=== PATIENT | female | born 1980 | race African-American/Black ===

== ENCOUNTER 2017-08-18 19:43 | Emergency (ER) | payer BC ==
[~2017-08-18] VITALS: Ht 154.9 cm; Wt 93.9 kg
[2017-08-18 20:00] VITALS: BP 139/94
[2017-08-18] MEDS ORDERED: KEFLEX500 MG ORAL (20:05)
[2017-08-18 20:08] VITALS: BP 139/94
--- NOTE | 2017-08-18 20:23 | Emergency Room Report ---
History of Present Illness General Chief Complaint: Animal Bite Source: Patient Present Illness HPI [id number] with "bites" to both legs Noted 3 days ago after taking clothes to [facility] Denies fever/chills or history of DM Allergies: Coded Allergies: No Known Allergies (Unverified , 08/18/17) Patient History Past Medical History: none Past Surgical History: none Pertinent Family History: none Last Menstrual Period: aug 09 Now: No : 4 Para: 2 Immunizations: UTD Reviewed Nursing Documentation: PMH: Agreed, PSxH: Agreed Nursing Documentation-PMH Hx Hypertension: Yes Review of Systems All Other Systems: negative except mentioned in HPI Physical Exam Vital Signs Date Time Temp Pulse Resp B/P (MAP) Pulse Ox O2 Delivery O2 Flow Rate FiO2 08/18/17 19:53 97.6 69 18 139/94 99 Room Air 97.5 Sp02 EP Interpretation: reviewed, normal General Appearance: normal inspection, well appearing, no apparent distress, alert, GCS 15, non-toxic Head: normocephalic, atraumatic Eyes: bilateral eye PERRL, bilateral eye EOMI ENT: normal ENT inspection, hearing grossly normal, normal pharynx, no angioedema, normal voice, TMs + canals normal, uvula midline, moist mucus membranes Neck: normal inspection, full range of motion, supple, thyroid normal, no meningismus, no bony tend Respiratory: normal inspection, lungs clear, normal breath sounds, no rhonchi, no respiratory distress, no retraction, no accessory muscle use, no wheezing, speaking full sentences Cardiovascular #1: regular rate, rhythm, no edema, no JVD, normal capillary refill Gastrointestinal: normal inspection, normal bowel sounds, non tender, soft, no mass, no peritonitis, non-distended, no guarding, no hernia, no pulsatile mass Genitourinary: no CVA tenderness Musculoskeletal: normal inspection, back normal, normal range of motion, no calf tenderness, pelvis stable, Juani's Sign negative Neurologic: normal inspection, alert, oriented x3, responsive, 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 No asbcess Lymphatic: normal inspection, no adenopathy Medical Decision Making Diagnostic Impression: Primary Impression: Cellulitis Qualified Codes: L03.119 - Cellulitis of unspecified part of limb ER Course Bilateral lower extremity cellulitis VSS, afebrile Not septic appearing Rx Keflex ER course: Patient has remained stable during ED stay. Disposition: Patient is to be discharged to home. Prescriptions given are keflex Patient is instructed to follow up with their primary care doctor within 5 days. Strict return precautions discussed with patient such as fever, chills, worsening/severe pain, nausea, vomiting, which may indicate severe illness. Patient verbalizes understanding and agrees with plan. Please note that this Emergency Department Report was dictated using [employer] pattern repairer technology software, occasionally this can lead to erroneous entry secondary to interpretation by the dictation equipment Last Vital Signs Date Time Temp Pulse Resp B/P (MAP) Pulse Ox O2 Delivery O2 Flow Rate FiO2 08/18/17 20:08 97.5 69 18 139/94 99 Room Air 97.5 Status: improved Disposition: HOME, SELF-CARE Condition: Improved Scripts Cephalexin* (KEFLEX*) 500 Mg Capsule 500 MG ORAL Q6H for 7 Days, #28 CAP 0 Refills Prov: GAMAL VALDEZ M.D. 08/18/17 Patient Instructions: Cellulitis, Maij-da-Exck GAMAL VALDEZ M.D. Aug 18, 2017 20:23
== END 2017-08-18 20:20 | disposition home or self-care (01) ==
LOC: EMR 20:20
DX: L03.116 Cellulitis of left lower limb (principal); L03.115 Cellulitis of right lower limb; I10 Essential (primary) hypertension
CPT/HCPCS: 99283

== ENCOUNTER 2017-12-06 13:09 | Emergency (ER) | payer BC ==
[~2017-12-06] VITALS: Ht 154.9 cm; Wt 98.4 kg
[~2017-12-06 13:09] MED LIST: KEFLEX500 MG ORAL
[2017-12-06] MEDS ORDERED: METHYLDOPA500 MG ORAL (13:22)
[2017-12-06 14:10] LABS: APPEARANCE,URINE CLEAR; BILIRUBIN, URINE NEGATIVE (NEGATIVE); GLUCOSE, URINE (UA) NEGATIVE (NEGATIVE); KETONES,URINE 1+ (NEGATIVE); LEUKOCYTE ESTERASE ,URINE NEGATIVE (NEGATIVE); NITRITE,URINE NEGATIVE (NEGATIVE); PH,URINE 7 (4.5-8.0); PROTEIN,URINE NEGATIVE (NEGATIVE); UROBILINOGEN,URINE NORMAL MG/DL (0.0-1.0)
[2017-12-06 14:18] LABS: COLOR,URINE YELLOW
[2017-12-06 14:30] LABS: BASOPHILS % (AUTO) 1.2 % (0.0-2.0); EOSINOPHILS % (AUTO) 1.2 % (0.0-3.0); HEMATOCRIT 37.8 % (37.0-47.0); HEMOGLOBIN 12.1 G/DL (12.0-16.0); LYMPHOCYTES % (AUTO) 26.8 % (20.0-45.0); MEAN CORPUSCULAR VOLUME 86 FL (80-99); MONOCYTES % (AUTO) 9.3 % (1.0-10.0); NEUTROPHILS % (AUTO) 61.6 % (45.0-75.0); PLATELET COUNT 315 K/UL (150-450); RED BLOOD COUNT 4.38 M/UL (4.20-5.40); RED CELL DISTRIBUTION WIDTH 11.4 % (11.6-14.8); WHITE BLOOD COUNT 7.6 K/UL (4.8-10.8)
[2017-12-06 14:45] LABS: ANION GAP 7 mmol/L (5-15); BLOOD UREA NITROGEN 6 mg/dL (7-18); CALCIUM 8.8 MG/DL (8.5-10.1); CARBON DIOXIDE 26 MMOL/L (21-32); CHLORIDE 103 MMOL/L (98-107); CREATININE 0.8 MG/DL (0.55-1.30); SODIUM 136 MMOL/L (136-145)
[2017-12-06 14:50] LABS: ALANINE AMINOTRANSFERASE 17 U/L (12-78); ALBUMIN 3.1 G/DL (3.4-5.0); ALBUMIN/GLOBULIN RATIO 0.8 (1.0-2.7); ALKALINE PHOSPHATASE 72 U/L (46-116); ASPARTATE AMINO TRANSFERASE 15 U/L (15-37); BILIRUBIN,TOTAL 0.9 MG/DL (0.2-1.0)
--- NOTE | 2017-12-06 15:51 | Emergency Room Report ---
History of Present Illness General Chief Complaint: Complications Source: Patient, Medical Record Present Illness HPI Patient states that she has had some light vaginal spotting since this morning. She is 9 weeks by dates. She did have sexual intercourse last night. She denies fever or chills. She denies pelvic pain. She denies dysuria or hematuria. She has no other complaints. Allergies: Coded Allergies: No Known Allergies (Unverified , 08/18/17) Patient History Past Medical History: see triage record, HTN Social History: Denies: smoking, alcohol use, drug use Last Menstrual Period: 9 weeks Now: Yes Reviewed Nursing Documentation: PMH: Agreed; PSxH: Agreed Nursing Documentation-PMH Past Medical History: No History, Except For Hx Hypertension: Yes Review of Systems All Other Systems: negative except mentioned in HPI Physical Exam Vital Signs Date Time Temp Pulse Resp B/P (MAP) Pulse Ox O2 Delivery O2 Flow Rate FiO2 12/06/17 13:18 98.5 62 18 113/62 100 Room Air 98.4 Sp02 EP Interpretation: reviewed, normal General Appearance: no apparent distress, alert, GCS 15, non-toxic Head: normocephalic, atraumatic Eyes: bilateral eye normal inspection, bilateral eye PERRL ENT: hearing grossly normal, normal pharynx, no angioedema, normal voice Neck: full range of motion, supple/symm/no masses Respiratory: chest non-tender, lungs clear, normal breath sounds, speaking full sentences Cardiovascular #1: regular rate, rhythm, no edema Gastrointestinal: normal bowel sounds, non tender, soft, non-distended, no guarding, no rebound Rectal: deferred Musculoskeletal: back normal, gait/station normal, normal range of motion, non- tender Neurologic: alert, oriented x3, responsive, motor strength/tone normal, sensory intact, speech normal Psychiatric: judgement/insight normal, memory normal, mood/affect normal, no suicidal/homicidal ideation Skin: normal color, no rash, warm/dry, well hydrated Medical Decision Making Diagnostic Impression: Primary Impression: First trimester bleeding Additional Impression: Threatened ER Course This patient presents with first trimester bleeding. The patient is found to have an intrauterine at 6 weeks +3 days. There is no heart beat. The patient's hCG is borderline low for dates. The patient's calculated dates are off from ultrasound findings. This could be a demise. However , it is too early to determine. This patient will need follow-up in 72 hours for repeat hCG and repeat assessment by her OB. At this time this is early versus demise. The patient is Rh+ and therefore does not need Rhogam. The patient is given close return precautions and follow-up instructions. Laboratory Tests Test 12/06/17 13:30 12/06/17 14:10 Urine Color Yellow Urine Appearance Clear Urine pH 7 (4.5-8.0) Urine Specific Sheldon 1.010 (1.005-1.035) Urine Protein Negative (NEGATIVE) Urine Glucose (UA) Negative (NEGATIVE) Urine Ketones 1+ (NEGATIVE) H Urine Occult Blood 3+ (NEGATIVE) H Urine Nitrite Negative (NEGATIVE) Urine Bilirubin Negative (NEGATIVE) Urine Urobilinogen Normal MG/DL (0.0-1.0) Urine Leukocyte Esterase Negative (NEGATIVE) Urine RBC 0-2 /HPF (0 - 2) Urine WBC 2-4 /HPF (0 - 2) Urine Squamous Epithelial Cells Few /LPF (NONE/OCC) Urine Amorphous Sediment Moderate /LPF (NONE) H Urine Bacteria Few /HPF (NONE) Urine Trichomonas Few /HPF (NONE) H White Blood Count 7.6 K/UL (4.8-10.8) Red Blood Count 4.38 M/UL (4.20-5.40) Hemoglobin 12.1 G/DL (12.0-16.0) Hematocrit 37.8 % (37.0-47.0) Mean Corpuscular Volume 86 FL (80-99) Mean Corpuscular Hemoglobin 27.6 PG (27.0-31.0) Mean Corpuscular Hemoglobin Concent 31.9 G/DL (32.0-36.0) L Red Cell Distribution Width 11.4 % (11.6-14.8) L Platelet Count 315 K/UL (150-450) Mean Platelet Volume 8.2 FL (6.5-10.1) Neutrophils (%) (Auto) 61.6 % (45.0-75.0) Lymphocytes (%) (Auto) 26.8 % (20.0-45.0) Monocytes (%) (Auto) 9.3 % (1.0-10.0) Eosinophils (%) (Auto) 1.2 % (0.0-3.0) Basophils (%) (Auto) 1.2 % (0.0-2.0) Sodium Level 136 MMOL/L (136-145) Potassium Level 4.0 MMOL/L (3.5-5.1) Chloride Level 103 MMOL/L (98-107) Carbon Dioxide Level 26 MMOL/L (21-32) Anion Gap 7 mmol/L (5-15) Blood Urea Nitrogen 6 mg/dL (7-18) L Creatinine 0.8 MG/DL (0.55-1.30) Estimate Glomerular Filtration Rate > 60 mL/min (>60) Glucose Level 88 MG/DL (74-106) Calcium Level 8.8 MG/DL (8.5-10.1) Total Bilirubin 0.9 MG/DL (0.2-1.0) Aspartate Amino Transferase (AST) 15 U/L (15-37) Alanine Aminotransferase (ALT) 17 U/L (12-78) Alkaline Phosphatase 72 U/L (46-116) Total Protein 7.1 G/DL (6.4-8.2) Albumin 3.1 G/DL (3.4-5.0) L Globulin 4.0 g/dL Albumin/Globulin Ratio 0.8 (1.0-2.7) L Human Chorionic Gonadotropin, Quant 93183 mIU/mL (1-6) H CT/MRI/US Diagnostic Results CT/MRI/US Diagnostic Results : Imaging Test Ordered: US pelvis: Impression Impression: Intrauterine gestational sac containing a pole with an estimated gestational age of 6 weeks 2 days by crown-rump length measurement. No heart activity. Differential considerations include very early intrauterine with resultant nonvisibility of cardiac activity, versus nonviable intrauterine . Correlate with serial beta hCGs, consider follow-up sonography is indicated Last Vital Signs Date Time Temp Pulse Resp B/P (MAP) Pulse Ox O2 Delivery O2 Flow Rate FiO2 12/06/17 13:18 98.5 62 18 113/62 100 Room Air 98.4 Disposition: HOME, SELF-CARE Condition: Stable Referrals: NON PHYSICIAN (PCP) Rupali Rosado DO Dec 06, 2017 15:51
[2017-12-06 19:00] VITALS: BP 120/80
[2017-12-06 20:30] VITALS: BP 132/74
--- NOTE | 2017-12-07 08:52 | Diagnostic Imaging Report ---
Indication: Abdominal pain, leg pelvic cramping, light spotting, positive test Technique: Transabdominal and transvaginal images Comparison: none Findings: Uterus measures 8.3 cm length by 5.8 cm AP. Within the endometrium, there is a gestational sac. This demonstrates a pole with a crown-rump length of 6 mm, corresponding estimated gestational age of 6 weeks 2 days. This also demonstrates a yolk sac. No heart activity demonstrated. No subchorionic hemorrhage. No myometrial abnormality. Left ovary measures 3.5 cm length. Right ovary measures 2.7 cm length. No adnexal mass. No free cul-de-sac fluid Impression: Intrauterine gestational sac containing a pole with an estimated gestational age of 6 weeks 2 days by crown-rump length measurement. No heart activity. Differential considerations include very early intrauterine with resultant nonvisibility of cardiac activity, versus nonviable intrauterine . Correlate with serial beta hCGs, consider follow-up sonography is indicated Negative for adnexal mass This agrees with the preliminary interpretation provided overnight by [facility].
== END 2017-12-06 20:34 | disposition home or self-care (01) ==
LOC: EMR 13:50
DX: O20.0 Threatened abortion (principal); Z3A.09 9 weeks gestation of pregnancy; O16.1 Unspecified maternal hypertension, first trimester
CPT/HCPCS: 36415; 76801; 80053; 81003; 84702; 85025; 86850; 86900; 86901; 96360; 96374; 96375; 99283

== ENCOUNTER 2017-12-11 13:04 | Emergency (ER) | payer BC ==
[~2017-12-11] VITALS: Ht 154.9 cm; Wt 98.4 kg
[~2017-12-11 13:04] MED LIST changes: +METHYLDOPA500 MG ORAL
[2017-12-11 14:20] LABS: BASOPHILS % (AUTO) 1.6 % (0.0-2.0); EOSINOPHILS % (AUTO) 0.9 % (0.0-3.0); HEMATOCRIT 36.4 % (37.0-47.0); HEMOGLOBIN 11.6 G/DL (12.0-16.0); LYMPHOCYTES % (AUTO) 25.3 % (20.0-45.0); MEAN CORPUSCULAR VOLUME 86 FL (80-99); MONOCYTES % (AUTO) 8.3 % (1.0-10.0); NEUTROPHILS % (AUTO) 63.9 % (45.0-75.0); PLATELET COUNT 305 K/UL (150-450); RED BLOOD COUNT 4.25 M/UL (4.20-5.40); RED CELL DISTRIBUTION WIDTH 10.9 % (11.6-14.8); WHITE BLOOD COUNT 7.2 K/UL (4.8-10.8)
[2017-12-11 14:31] LABS: ANION GAP 9 mmol/L (5-15); BLOOD UREA NITROGEN 5 mg/dL (7-18); CALCIUM 8.9 MG/DL (8.5-10.1); CARBON DIOXIDE 25 MMOL/L (21-32); CHLORIDE 104 MMOL/L (98-107); CREATININE 0.9 MG/DL (0.55-1.30); SODIUM 138 MMOL/L (136-145)
[2017-12-11 14:41] LABS: ALANINE AMINOTRANSFERASE 15 U/L (12-78); ALBUMIN 3.1 G/DL (3.4-5.0); ALBUMIN/GLOBULIN RATIO 0.8 (1.0-2.7); ALKALINE PHOSPHATASE 71 U/L (46-116); ASPARTATE AMINO TRANSFERASE 15 U/L (15-37); BILIRUBIN,TOTAL 1.3 MG/DL (0.2-1.0)
[2017-12-11 14:44] LABS: BILIRUBIN,DIRECT 0.3 MG/DL (0.0-0.3)
[2017-12-11 14:45] LABS: APPEARANCE,URINE CLOUDY; BILIRUBIN, URINE NEGATIVE (NEGATIVE); COLOR,URINE ORANGE; GLUCOSE, URINE (UA) NEGATIVE (NEGATIVE); KETONES,URINE 1+ (NEGATIVE); LEUKOCYTE ESTERASE ,URINE 1+ (NEGATIVE); NITRITE,URINE NEGATIVE (NEGATIVE); PH,URINE 7 (4.5-8.0); PROTEIN,URINE 2+ (NEGATIVE); UROBILINOGEN,URINE 1 MG/DL (0.0-1.0)
--- NOTE | 2017-12-11 15:48 | Diagnostic Imaging Report ---
EXAM: US First Trimester, Transabdominal US , Transvaginal CLINICAL HISTORY: PAIN TECHNIQUE: Real-time transabdominal and transvaginal obstetrical ultrasound of the maternal pelvis and a first trimester with image documentation. Transvaginal imaging was used for better evaluation of the fetus and adnexa. COMPARISON: Pelvic ultrasound 12/06/17 FINDINGS: Gestation: Single intrauterine containing a gestational sac, yolk sac. Gestational sac measures 2 cm. 3 mm pole corresponding to 5 weeks 6 days. No heart tones. Placenta/amniotic fluid: Small subchorionic bleed. Uterus/cervix: Uterus measures 8.7 x 5.5 x 5.3 cm. No myometrial mass. Ovaries: Right ovary measures 2.3 x 2.6 x 1.2 cm. Left ovary measures 2.8 x 2.1 x 1.7 cm. No mass. Free fluid: Small free fluid in posterior cul-de-sac. IMPRESSION: 1. Single intrauterine containing a gestational sac, yolk sac. 3 mm pole corresponding to 5 weeks 6 days, smaller than prior study which was 6 weeks 2 days. No heart tones. Differential includes early intrauterine , however, is worrisome for nonviable . Correlate with serial BHCG's and f/u imaging. 2. Small subchorionic bleed.
[2017-12-11 16:16] VITALS: BP 104/64
--- NOTE | 2017-12-12 22:44 | Emergency Room Report ---
History of Present Illness General Chief Complaint: Complications Source: Patient Present Illness HPI Patient 37-year-old female who presented after increased vaginal bleeding. Patient gradual onset of symptoms. The patient recently been seen for the threatened . Patient is A2. The patient's proximal was 7 weeks the patient reported having increased bleeding. As she denies any fever or discharge. She denies feeling lightheaded. Patient reported having some clotting. she denies passing tissue. Allergies: Coded Allergies: No Known Allergies (Unverified , 08/18/17) Patient History Past Medical History: see triage record Now: Yes : 5 Reviewed Nursing Documentation: PMH: Agreed; PSxH: Agreed Nursing Documentation-PMH Past Medical History: No History, Except For Hx Hypertension: Yes Review of Systems All Other Systems: negative except mentioned in HPI Physical Exam Vital Signs Date Time Temp Pulse Resp B/P (MAP) Pulse Ox O2 Delivery O2 Flow Rate FiO2 12/11/17 13:10 98.1 66 20 104/64 98 Room Air 98.1 Sp02 EP Interpretation: reviewed, normal General Appearance: normal inspection, well appearing, no apparent distress, alert, GCS 15 Head: atraumatic ENT: normal ENT inspection, hearing grossly normal, normal voice Neck: normal inspection, full range of motion, supple, no bony tend Respiratory: normal inspection, lungs clear, normal breath sounds, no respiratory distress, no retraction, no wheezing Cardiovascular #1: regular rate, rhythm, no edema Gastrointestinal: normal inspection, normal bowel sounds, non tender, soft, no guarding, no hernia Genitourinary: no CVA tenderness, os closed, other - mild bleeding Musculoskeletal: normal inspection, back normal, normal range of motion Neurologic: normal inspection, alert, oriented x3, responsive, 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 Differential diagnosis included was not limited to incomplete , ectopic , a completed , threatened among others.Because of complexity of patient's case laboratory testing and imaging studies were ordered. The patient noted to have a falling quantitative hCG. The pelvic ultrasound showed approximate 6 week gestation fetus without evident heart tones. The patient was advised to follow-up with [facility] for reexamination. The patient was noted to have minimal bleeding. Patient is advised to recheck in one to 2 days. She was return for increased bleeding dizziness or other concerns Labs Test 12/11/17 13:27 12/11/17 14:00 Urine Color Chambers Urine Appearance Cloudy Urine pH 7 (4.5-8.0) Urine Specific Nelson 1.010 (1.005-1.035) Urine Protein 2+ (NEGATIVE) Urine Glucose (UA) Negative (NEGATIVE) Urine Ketones 1+ (NEGATIVE) Urine Occult Blood 5+ (NEGATIVE) Urine Nitrite Negative (NEGATIVE) Urine Bilirubin Negative (NEGATIVE) Urine Urobilinogen 1 MG/DL (0.0-1.0) Urine Leukocyte Esterase 1+ (NEGATIVE) Urine RBC 2-4 /HPF (0 - 2) Urine WBC 10-15 /HPF (0 - 2) Urine Squamous Epithelial Cells Many /LPF (NONE/OCC) Urine Amorphous Sediment Moderate /LPF (NONE) Urine Bacteria Many /HPF (NONE) White Blood Count 7.2 K/UL (4.8-10.8) Red Blood Count 4.25 M/UL (4.20-5.40) Hemoglobin 11.6 G/DL (12.0-16.0) Hematocrit 36.4 % (37.0-47.0) Mean Corpuscular Volume 86 FL (80-99) Mean Corpuscular Hemoglobin 27.4 PG (27.0-31.0) Mean Corpuscular Hemoglobin Concent 32.0 G/DL (32.0-36.0) Red Cell Distribution Width 10.9 % (11.6-14.8) Platelet Count 305 K/UL (150-450) Mean Platelet Volume 8.2 FL (6.5-10.1) Neutrophils (%) (Auto) 63.9 % (45.0-75.0) Lymphocytes (%) (Auto) 25.3 % (20.0-45.0) Monocytes (%) (Auto) 8.3 % (1.0-10.0) Eosinophils (%) (Auto) 0.9 % (0.0-3.0) Basophils (%) (Auto) 1.6 % (0.0-2.0) Prothrombin Time 10.2 SEC (9.30-11.50) Prothromb Time International Ratio 1.0 (0.9-1.1) Activated Partial Thromboplast Time 26 SEC (23-33) Sodium Level 138 MMOL/L (136-145) Potassium Level 4.0 MMOL/L (3.5-5.1) Chloride Level 104 MMOL/L (98-107) Carbon Dioxide Level 25 MMOL/L (21-32) Anion Gap 9 mmol/L (5-15) Blood Urea Nitrogen 5 mg/dL (7-18) Creatinine 0.9 MG/DL (0.55-1.30) Estimat Glomerular Filtration Rate > 60 mL/min (>60) Glucose Level 100 MG/DL (74-106) Calcium Level 8.9 MG/DL (8.5-10.1) Total Bilirubin 1.3 MG/DL (0.2-1.0) Direct Bilirubin 0.3 MG/DL (0.0-0.3) Aspartate Amino Transf (AST/SGOT) 15 U/L (15-37) Alanine Aminotransferase (ALT/SGPT) 15 U/L (12-78) Alkaline Phosphatase 71 U/L (46-116) Total Protein 7.0 G/DL (6.4-8.2) Albumin 3.1 G/DL (3.4-5.0) Globulin 3.9 g/dL Albumin/Globulin Ratio 0.8 (1.0-2.7) Lipase 67 U/L (73-393) Human Chorionic Gonadotropin, Quant 14495 mIU/mL (1-6) Last Vital Signs Date Time Temp Pulse Resp B/P (MAP) Pulse Ox O2 Delivery O2 Flow Rate FiO2 12/11/17 16:16 98.1 20 104/64 98 Room Air 98.1 12/11/17 13:10 66 Status: improved Disposition: HOME, SELF-CARE Condition: Improved Referrals: NON PHYSICIAN (PCP) Departure Forms: Return to Work Return to Work in (Days): 2 Patient Instructions: Vaginal Bleeding During , First Trimester, Easy- to-Read Additional Instructions: Recheck with your OB in 1-2 days return if worsened bleeding, lightheaded or other problems Israel Deutsch MD Dec 12, 2017 22:44
== END 2017-12-11 16:16 | disposition home or self-care (01) ==
LOC: EMR 13:46
DX: O20.9 Hemorrhage in early pregnancy, unspecified (principal); Z3A.01 Less than 8 weeks gestation of pregnancy; O76 Abnormality in fetal heart rate and rhythm complicating labor and delivery; O16.1 Unspecified maternal hypertension, first trimester
CPT/HCPCS: 36415; 76801; 76830; 80053; 81003; 82248; 83690; 84702; 85025; 85610; 85730; 86850; 86900; 86901; 87086; 99284